=== PATIENT | male | born 1995 | race Two or more races ===

== ENCOUNTER 2016-11-26 14:25 | Emergency (ER) | payer MEDICAID ==
[2016-11-26 14:40] VITALS: TEMP 98.2
--- NOTE | 2016-11-26 15:04 | EDPHY ---
H & P Stated Complaint: abd bloating and nausea in mornings for 1 month HPI/ROS: CHIEF COMPLAINT: Stomach discomfort HISTORY OF PRESENT ILLNESS: This patient is a healthy 21 year old male arriving with his family complaining of stomach discomfort including bloating and tingling sensations onset today and nausea over the last two months. He has tried taking Pepcid and Pepto- Bismol to relieve his symptoms. He reports that he vomited once this afternoon around 12-1pm. He has had two normal bowel movements. He denies associated pain at this time. He states he has been having episodes of gagging upon waking for the last two months. He denies diarrhea, fever, or other associated symptoms. He reports he has stomach aches fairly often, and generally takes [place], Pepcid, or Pepto-Bismol to relieve symptoms. He reports is currently feeling more calm and not nauseous at this time. REVIEW OF SYSTEMS: A ten point review of systems was performed and is negative with the exception of the items mentioned in the HPI. - Personal History Current Tetanus/Diphtheria Vaccine: Yes - Medical/Surgical History PMH: Denies. Hx Asthma: No Hx Chronic Respiratory Disease: No Hx Diabetes: No Hx Cardiac Disease: No Hx Renal Disease: No Hx Cirrhosis: No Hx Alcoholism: No Hx HIV/AIDS: No Hx Splenectomy or Spleen Trauma: No Other PMH: Denies - Social History Smoking Status: Never smoked Additional Social History: Occasional marijuana use. Occasional alcohol use. 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 - Physical Exam Exam: General Appearance: Alert. Vital signs reviewed. Eyes: Pupils equal and round, no conjunctival injection, no discharge. Anicteric. ENT, Mouth: Mucous membranes are moist, no oropharyngeal erythema or edema. Neck: No lymphadenopathy, supple. Respiratory: Lungs are clear to auscultation; no wheezes, rales, or rhonchi. Cardiovascular: Regular rate and rhythm; no murmur, rub, or gallop. Gastrointestinal: Abdomen is soft and nontender, no masses or organomegaly, bowel sounds normal. Skin: Warm and dry, no rashes on exposed skin, normal color. Back: Nontender to palpation over the thoracolumbar spine. No CVAT. Extremities: No lower extremity edema, no calf tenderness or swelling. Neurological: Alert and oriented. Moving all four extremities easily and equally. Psychiatric: Normal affect. Constitutional: Initial Vital Signs Temperature (C) 36.8 C 11/26/16 14:38 Heart Rate 62 11/26/16 14:38 Respiratory Rate 18 11/26/16 14:38 Blood Pressure 133/82 H 11/26/16 14:38 O2 Sat (%) 98 11/26/16 14:38 O2 Delivery Mode Room Air Allergies/Adverse Reactions: No Known Allergies Allergy (Verified 11/26/16 14:38) Home Medications: Medication Instructions Recorded NK [No Known Home Meds] 11/26/16 Medical Decision Making ED Course/Re-evaluation: This patient is a healthy 21 year old male presenting with a two month history of morning nausea and gagging as well as stomach bloating and discomfort onset today. Physical exam is unremarkable. Plan to order labs including CBC, CHEM, lipase, and liver panel. I suspect his symptoms are likely due to acid reflux, but would like to rule out pancreatic or liver pathology. There is no jaundice. Labs unremarkable exccept for elevated bilirubin. No jaundice. LFTs otherwise nl. Doubt hepatitis, no other indication of liver disease, doubt obstruction of the biliary tree that would need urgent surgery, malignancy unlikely in this young male. He is not ill, this is not sepsis. Reassessed patient. Relayed results of lab work. Plan to discharge home in good condition with a referral to primary care. I have recommended he continue taking Pepcid daily to treat symptoms. Return precautions discussed. The patient and his family are comfortable with this plan. Differential Diagnosis: Abdominal pain including but not limited to appendicitis, cholecystitis, Pancreatitis, gastritis and urinary tract infection. - Data Points Laboratory Results: Laboratory Results 11/26/16 15:53 11/26/16 15:53 Departure - Departure Disposition: Home, Routine, Self-Care Clinical Impression: Midepigastric pain, Abdominal bloating Condition: Good Instructions: Gastroesophageal Reflux Disease (ED) Additional Instructions: 1. Continue to take Pepcid as directed on the packaging to relieve your symptoms. 2. Follow up with a primary care provider to determine a good regimen of symptom management for you. We have referred you to our outpatient physician organizational development director and to the [facility]. 3. Return to the ED for worsening vomiting, diarrhea, fever, chills, or other worsening of condition. Referrals: Elaine Gamez MD [[facility] Primary Care Provider] - As per Instructions [facility] [Clinic] - As per Instructions Report Scribed for: Kristal Stapleton Report Scribed by: Natty Obrien Date of Report: 11/26/16 Time of Report: 15:41 Physician Review and Approval Statement: 11/26/16 15:04 Portions of this note were transcribed by the medical accounting clerk. I, Dr. Kristal Stapleton, personally performed the history, physical exam, and medical decision- making; and confirmed the accuracy of the information in the transcribed note.
[2016-11-26 15:59] LABS: % IMMATURE GRANULYOCYTES 0.3 % (0.0-1.1); ABSOLUTE IMMATURE GRANULOCYTES 0.03 10^3/uL (0.00-0.10); ADD DIFF? NO; ADD MORPH? NO; ADD SCAN? NO; ATYPICAL LYMPHOCYTE FLAG 0 (0-99); FRAGMENT RBC FLAG 0 (0-99); HEMATOCRIT 47.3 % (40.0-51.0); HEMOGLOBIN 16.3 g/dL (13.7-17.5); LEFT SHIFT FLG 0 (0-99); LIPEMIA HEMOLYSIS FLAG 90 (0-99); MEAN CELL HEMOGLOBIN CONCENTR. 34.5 g/dL (32.4-36.7); MEAN CELL VOLUME 92.7 fL (81.5-99.8); MEAN PLATELET VOLUME 9.2 fL (8.7-11.7); PLATELET CLUMPS FLAG 0 (0-99); PLATELET COUNT 263 10^3/uL (150-400); RED CELL DISTRIBUTION WIDTH 11.4 % (11.5-15.2)
[2016-11-26 16:17] LABS: ALANINE AMINOTRANSFERASE 28 IU/L (21-72); ALBUMIN 4.9 g/dL (3.5-5.0); ALKALINE PHOSPHATASE 69 IU/L (38-126); ANION GAP 13 mEq/L (8-16); ASPARTATE AMINOTRANSFERASE 23 IU/L (17-59); BILIRUBIN,TOTAL 2.5 mg/dL (0.1-1.4); BILIRUBIN-CONJUGATED 0.6 mg/dL (0.0-0.5); BILIRUBIN-UNCONJUGATED 1.9 mg/dL (0.0-1.1); CALCIUM 10.2 mg/dL (8.5-10.4); CARBON DIOXIDE 23 mEq/l (22-31); CHLORIDE 108 mEq/L (97-110); CREATININE 0.9 mg/dL (0.7-1.3); GLOMERULAR FILTRATION RATE > 60; GLUCOSE 110 mg/dL (70-100); POTASSIUM 4.2 mEq/L (3.5-5.2); SODIUM 144 mEq/L (134-144)
[2016-11-26 16:45] VITALS: BP 127/93; PULSE 72; RESP 16; O2SAT 95
== END 2016-11-26 16:44 | disposition home or self-care (01) ==
DX: R14.0 Abdominal distension (gaseous) (principal); R10.13 Epigastric pain

== ENCOUNTER 2017-05-26 11:16 | Emergency (ER) | payer MEDICAID ==
--- NOTE | 2017-05-26 11:40 | EDPHY ---
H & P Time Seen by Provider: 05/26/17 11:24 HPI/ROS: CHIEF COMPLAINT: Fever, sore throat HISTORY OF PRESENT ILLNESS: 21-year-old male presents to the emergency department with fever and sore throat over last 2 days. It over last 2 weeks however he has had mild rhinorrhea and cough. He states he has been taking DayQuil and he is feeling much better. He states yesterday however he developed fever, chills and sore throat. He states that he was around his little brother who was recently started antibiotics for strep. He is concerned that he could have strep throat. He denies dysphagia. Denies abdominal pain or vomiting. No neck pain or stiffness. No back pain. REVIEW OF SYSTEMS: Constitutional: Fever as above. No chills. Eyes: No double or blurry vision. ENT: sore throat. Respiratory: No cough, no shortness of breath. Cardiac: No chest pain. Gastrointestinal: No abdominal pain, vomiting or diarrhea. Genitourinary: No dysuria. Musculoskeletal: No neck or back pain. Skin: No rashes. Neurological: No headache. Past Medical/Surgical History: Negative Social History: Single Smoking Status: Never smoked Physical Exam: General Appearance: Alert, no distress. Eyes: Pupils equal and round. Extraocular motions are all intact. ENT: Mouth: Mucous membranes moist. Posterior pharyngeal injection noted without exudate both tonsils. No uvular swelling or shift. No muffled voice or trismus. Anterior cervical lymphadenopathy palpated. Respiratory: No wheezing, rhonchi, or rales, lungs are clear to auscultation. Cardiovascular: Regular rate and rhythm. Gastrointestinal: Abdomen is soft and nontender, no masses, no rebound or guarding, bowel sounds normal. Neurological: Alert and oriented x 3, cranial nerves II through XII grossly intact Skin: Warm and dry, no rashes. Musculoskeletal: Nontender to palpate along the cervical, thoracic or lumbar spine. Neck is supple. No nuchal rigidity. Extremities: Full range of motion and no peripheral edema. Psychiatric: Patient is oriented X 3, there is no agitation. Constitutional: Initial Vital Signs Temperature (C) 37.3 C 05/26/17 11:19 Heart Rate 88 05/26/17 11:19 Respiratory Rate 20 05/26/17 11:19 Blood Pressure 126/79 H 05/26/17 11:19 O2 Sat (%) 96 05/26/17 11:19 O2 Delivery Mode Room Air Allergies/Adverse Reactions: No Known Allergies Allergy (Verified 05/26/17 11:19) Home Medications: Medication Instructions Recorded Penicillin V Potassium 500 mg PO TID #30 tablet 05/26/17 Medical Decision Making ED Course/Re-evaluation: 21-year-old male presents with fever and sore throat. The patient had contact with his younger brother who tested positive for strep. Patient has exudate pharyngitis with low-grade temperature. He will be treated for strep. I did give him the options of testing for strep, however the patient agreed with treating with antibiotics. Patient should return if he develops vomiting, difficulty swallowing, or if he feels worse in any way. She was comfortable with this plan. Differential Diagnosis: Including but not limited to strep pharyngitis, mononucleosis, viral syndrome, peritonsillar abscess, retropharyngeal abscess. Departure - Departure Disposition: Home, Routine, Self-Care Clinical Impression: Acute streptococcal pharyngitis Condition: Good Instructions: Strep Throat (ED) Additional Instructions: Penicillin 3 times daily for 10 days. You should discard toothbrush after you have been on antibiotics for 48 hours and when you have completed the antibiotics in 10 days. Adult Pain & Fever Control: We recommend Acetaminophen (Tylenol) and Ibuprofen (Motrin,Advil) for pain and fever control. When fever is high or pain severe, both drugs can be used at the same time, but at different intervals. Please note the time differences. Your dose is: Acetaminophen [1000]mg every 4 to 6 hours Ibuprofen [600]mg every [8] hours with food Note: do not take Acetaminophen with Hydrocodone (Vicodin, Lortab) or Oycodone (Percocet). These medications also contain Acetaminophen. No more than 3000mg of Acetaminophen should be taken in 24 hours (for an adult). Referrals: Cher Hays MD [Medical Doctor] - 2-3 days, if not improved (Primary care provider construction helper) Prescriptions: Penicillin V Potassium 500 mg PO TID #30 tablet
[2017-05-26 11:51] VITALS: BP 126/79; PULSE 88; RESP 20; TEMP 99.1; O2SAT 96
== END 2017-05-26 11:44 | disposition home or self-care (01) ==
DX: J02.0 Streptococcal pharyngitis (principal)

== ENCOUNTER 2017-10-28 20:39 | Emergency (ER) | payer MEDICAID ==
--- NOTE | 2017-10-28 21:21 | EDPHY ---
H & P Stated Complaint: abd pain, nausea - Medical/Surgical History Hx Asthma: No Hx Chronic Respiratory Disease: No Hx Diabetes: No Hx Cardiac Disease: No Hx Renal Disease: No Hx Cirrhosis: No Hx Alcoholism: No Hx HIV/AIDS: No Hx Splenectomy or Spleen Trauma: No Other PMH: strep - Social History Smoking Status: Never smoked Time Seen by Provider: 10/28/17 21:04 HPI/ROS: CHIEF COMPLAINT: Epigastric discomfort x1 week HISTORY OF PRESENT ILLNESS: 22-year-old male history of H pylori gastritis in the past, not currently on PPI or other medication, complaining of 1 week of intermittent nausea and epigastric pain. Not associated with food intake. No back or flank pain. No vomiting. No melena or hematochezia. Bowel movements normal. No urinary abnormality. No testicular pain. No fever or chills. No trauma. No chest pain. No dyspnea. PRIMARY CARE PROVIDER: REVIEW OF SYSTEMS: A ten point review of systems was performed and is negative with the exception of the items mentioned in the HPI PAST MEDICAL & SURGICAL HISTORY: Positive for H pylori in the past SOCIAL HISTORY: Nonsmoker. PHYSICAL EXAM (Prior to examination, patient consented to physical exam, hands were washed and my usual and customary physical exam procedures followed) 1) GENERAL: Well-developed, well-nourished, alert and oriented. Appears to be in no acute distress. 2) HEAD: Normocephalic, atraumatic 3) HEENT: Pupils equal, round, reactive to light bilaterally. Sclera anicteric. Nasopharynx, oropharynx, clear, no lesions. Moist mucous membranes 4) NECK: Full range of motion, no meningeal signs. 5) LUNGS: Clear auscultation bilaterally, no wheezes, no rhonchi, no retractions. 6) HEART: Regular rate and rhythm, no murmur, no heave, no gallop. 7) ABDOMEN: No guarding, no rebound, minimal tenderness to palpation midline epigastrium, negative McBurney's, negative Street's, negative Rovsing's, negative peritoneal sign, 8) MUSCULOSKELETAL: Moving all extremities, no focal areas of tenderness, no obvious trauma. No peripheral edema or discoloration. 9) BACK: No CVA tenderness, no midline vertebral tenderness, no fluctuance, no step-off, no obvious trauma, no visual or palpable abnormality. 10) SKIN: No rash, no petechiae. 11) Psychiatric: Patient is oriented X 3, there is no agitation. DIFFERENTIAL DIAGNOSIS: In no particular order, including but not limited to biliary colic, cholecystitis, peptic ulcer disease, pancreatitis, and gastroenteritis. This is a partial list of diagnoses considered. These considerations are based on history, physical exam, past history and reassessment. (Ren Galicia) Constitutional: Initial Vital Signs Temperature (C) 36.8 C 10/28/17 20:42 Heart Rate 92 10/28/17 20:42 Respiratory Rate 20 10/28/17 20:42 Blood Pressure 147/78 H 10/28/17 20:42 O2 Sat (%) 98 10/28/17 20:42 O2 Delivery Mode Room Air Allergies/Adverse Reactions: No Known Allergies Allergy (Verified 10/28/17 20:42) Home Medications: Medication Instructions Recorded Pantoprazole Sodium [Protonix 40mg 40 mg PO DAILY #30 tab 10/28/17 (RX)] Medical Decision Making ED Course/Re-evaluation: The patient was evaluated and managed by the physician's animal care assistant. My cosignature indicates that I reviewed the chart and I agree with the findings and plan of care as documented. I am the secondary supervising physician. ( Tess Colon) Patient was re-evaluated with serial examinations most recently at 10:04 p.m.. He has been given a GI cocktail and notes that he is now asymptomatic. I reviewed his laboratory studies. Doubt acute cholecystitis. Doubt acute appendicitis. Doubt acute pancreatitis. I do not think that imaging studies are currently indicated at this time. I discussed his elevated unconjugated bilirubin with him which may have multiple etiologies. At this time I do not think that emergent intervention or diagnostic studies are indicated regarding specifically regarding this. However, he will necessitate further follow-up. I have given him both primary care and GI follow-up information. I am initiating proton pump inhibitor therapy and discussed usual and customary abdominal precautions and instructions and dietary recommendations. He feels comfortable being discharged. All questions and concerns addressed by myself. Care of patient under supervision of secondary supervising physician Dr Colon . (Ren Galicia) - Data Points Laboratory Results: Laboratory Results 10/28/17 21:20 10/28/17 21:20 10/28/17 10/28/17 21:20 21:20 WBC 9.69 10^3/uL H 10^3/uL (3.80-9.50) RBC 5.32 10^6/uL 10^6/uL (4.40-6.38) Hgb 16.7 g/dL g/dL (13.7-17.5) Hct 47.8 % % (40.0-51.0) MCV 89.8 fL fL (81.5-99.8) MCH 31.4 pg pg (27.9-34.1) MCHC 34.9 g/dL g/dL (32.4-36.7) RDW 11.8 % % (11.5-15.2) Plt Count 273 10^3/uL 10^3/uL (150-400) MPV 8.9 fL fL (8.7-11.7) Neut % (Auto) 81.3 % H % (39.3-74.2) Lymph % (Auto) 13.4 % L % (15.0-45.0) Taney % (Auto) 4.5 % % (4.5-13.0) Eos % (Auto) 0.1 % L % (0.6-7.6) Baso % (Auto) 0.3 % % (0.3-1.7) Nucleat RBC Rel Count 0.0 % % (0.0-0.2) Absolute Neuts (auto) 7.87 10^3/uL H 10^3/uL (1.70-6.50) Absolute Lymphs (auto) 1.30 10^3/uL 10^3/uL (1.00-3.00) Absolute Monos (auto) 0.44 10^3/uL 10^3/uL (0.30-0.80) Absolute Eos (auto) 0.01 10^3/uL L 10^3/uL (0.03-0.40) Absolute Basos (auto) 0.03 10^3/uL 10^3/uL (0.02-0.10) Absolute Nucleated RBC 0.00 10^3/uL 10^3/uL (0-0.01) Immature Gran % 0.4 % % (0.0-1.1) Immature Gran # 0.04 10^3/uL 10^3/uL (0.00-0.10) Sodium 144 mEq/L mEq/L (135-145) Potassium 3.8 mEq/L mEq/L (3.5-5.2) Chloride 103 mEq/L mEq/L (97-110) Carbon Dioxide 23 mEq/l mEq/l (22-31) Anion Gap 18 mEq/L H mEq/L (8-16) BUN 14 mg/dL mg/dL (7-23) Creatinine 1.0 mg/dL mg/dL (0.7-1.3) Estimated GFR > 60 Glucose 112 mg/dL H mg/dL (70-100) Calcium 10.1 mg/dL mg/dL (8.5-10.4) Total Bilirubin 2.3 mg/dL H mg/dL (0.1-1.4) Conjugated Bilirubin 0.5 mg/dL mg/dL (0.0-0.5) Unconjugated Bilirubin 1.8 mg/dL H mg/dL (0.0-1.1) AST 25 IU/L IU/L (17-59) ALT 35 IU/L IU/L (21-72) Alkaline Phosphatase 80 IU/L IU/L (38-126) Total Protein 8.1 g/dL g/dL (6.3-8.2) Albumin 4.7 g/dL g/dL (3.5-5.0) Lipase 34 IU/L IU/L (23-300) Medications Given: Discontinued Medications Al Hydroxide/Mg Hydroxide (Maalox Susp) 30 ml PO ONCE ONE Stop: 10/28/17 21:23 Last Admin: 10/28/17 21:31 Dose: 30 ml Hyoscyamine Sulfate (Levsin, Hyomax-Sl) 0.25 mg PO ONCE ONE Stop: 10/28/17 21:23 Last Admin: 10/28/17 21:31 Dose: 0.25 mg Sodium Chloride (Ns) 1,000 mls @ 0 mls/hr IV ONCE ONE PRN Reason: Wide Open Stop: 10/28/17 21:23 Last Admin: 10/28/17 21:31 Dose: 1,000 mls Lidocaine (Lidocaine 2% Viscous) 15 ml PO ONCE ONE Stop: 10/28/17 21:23 Last Admin: 10/28/17 21:31 Dose: 15 ml Departure - Departure Disposition: Home, Routine, Self-Care Clinical Impression: Epigastric abdominal pain Condition: Good Instructions: Acute Abdominal Pain (ED) Additional Instructions: Seek immediate medical attention if you develop new or worsening symptoms, if you develop fevers, chills, inability to tolerate oral intake or any other symptoms that concerns you. Eat bland food, decrease your caffeine, soda and alcohol ingestion. Referrals: Edd Zeng MD [Medical Doctor] - 1-2 days without fail [facility],. [Clinic] - 1-2 days without fail Prescriptions: Pantoprazole Sodium [Protonix 40mg (RX)] 40 mg PO DAILY #30 tab
[2017-10-28] MEDS ORDERED: LIDOCAINE 2% VISCOUS 15 ML UDCUP PO ONE (21:22)
[2017-10-28] MEDS ORDERED: NS 1,000 ML IV ONE (21:22)
[2017-10-28] MEDS ORDERED: HYOSCYAMINE SULFATE 0.125 MG TAB PO ONE (21:22)
[2017-10-28] MEDS ORDERED: MAG HYDROX/AL HYDROX/SIMETH 30 ML UDCUP PO ONE (21:22)
[2017-10-28 21:30] LABS: PLATELET COUNT 273 10^3/uL (150-400)
[2017-10-28 22:13] VITALS: BP 116/79
== END 2017-10-28 22:27 | disposition home or self-care (01) ==
DX: R10.13 Epigastric pain (principal)

== ENCOUNTER 2017-11-09 19:17 | Emergency (ER) | payer SELFPAY ==
--- NOTE | 2017-11-09 19:52 | EDPHY ---
HPI/HX/ROS/PE/MDM Narrative: CHIEF COMPLAINT: Abdominal pain HISTORY OF PRESENT ILLNESS: The patient is a 22 y/o male with a history of H. pylori complaining of abdominal pain after taking antibiotics (Metronidazole and Tetracycline) for H. pylori. He was seen in an emergency department several weeks ago for abdominal pain and was advised to take antacids and follow up with his PCP. When he saw his PCP at [facility], on 11/01/17, he was diagnosed with H. pylori via a stool specimen. Since taking the antibiotics he has had a decreased appetite, diarrhea , and has been vomiting (primarily when he takes Metronidazole). These symptoms feel different than prior H. pylori infections. Admits to marijuana use. Denies seeing a mold closer helper. No fever, chills, chest pain, shortness of breath, palpitations, urinary complaints, headache, lightheadedness. REVIEW OF SYSTEMS: Aside from elements discussed in the HPI, a comprehensive 10-point review of systems was reviewed and is negative. PAST MEDICAL HISTORY: H. pylori, stomach ulcers SOCIAL HISTORY: Family at bedside, lives in [facility] VITAL SIGNS: Reviewed by me GENERAL: Well-developed, well-nourished, resting comfortably in no respiratory distress. HEENT: Atraumatic. Eyes: No icterus, no injection. Mouth: moist mucous membranes. No erythema or lesions. Neck: supple with no adenopathy. LUNGS: Clear to auscultation bilaterally, no wheezes, rhonchi or rales. CARDIAC: Regular rate and rhythm, no rubs, murmurs or gallops. ABDOMEN: Mild epigastric tenderness to palpation. Soft, nondistended, bowel sounds normal. BACK: No CVA tenderness. EXTREMITIES: No trauma. No edema. Range of motion is normal throughout. NEURO: Alert and oriented, grossly nonfocal. SKIN: Warm and dry, no rash. PSYCHIATRIC: Normal mentation, no agitation. Portions of this note were transcribed by a medical surgical tech. I personally performed a history, physical exam, medical decision making, and confirmed accuracy of information the transcribed note. ED Course: The patient is a 22 y/o male with a history of H. pylori complaining of abdominal pain after taking antibiotics (Metronidazole and Tetracycline) for H. pylori. On exam he has mild epigastric tenderness to palpation. GI cocktail and 1gm PO Carafate administered. Reassessed patient, he is feeling better after GI cocktail. I have advised him to take Clarithromycin and Amoxicillin instead of Metronidazole and Tetracycline. I have also prescribed him Phenergan for nausea. I have advised him to take Pantoprazole, Carafate, and Maalox or Mylanta. Return precautions provided; patient is comfortable with this plan. MDM: After obtaining the patient's history and performing an examination, differential diagnosis considered included but was not limited to gastritis, reflux, perforated ulcer, indigestion and abdominal upset from a antibiotics, H pylori, pancreatitis, hepatitis. - Data Points Medications Given: Discontinued Medications Al Hydroxide/Mg Hydroxide (Maalox Susp) 30 ml PO ONCE ONE Stop: 11/09/17 20:15 Last Admin: 11/09/17 20:21 Dose: 30 ml Famotidine (Pepcid) 20 mg PO EDNOW ONE Stop: 11/09/17 20:15 Last Admin: 11/09/17 20:21 Dose: 20 mg Hyoscyamine Sulfate (Levsin, Hyomax-Sl) 0.25 mg PO ONCE ONE Stop: 11/09/17 20:15 Last Admin: 11/09/17 20:21 Dose: 0.25 mg Lidocaine (Lidocaine 2% Viscous) 15 ml PO ONCE ONE Stop: 11/09/17 20:15 Last Admin: 11/09/17 20:21 Dose: 15 ml General Time Seen by Provider: 11/09/17 19:47 Initial Vital Signs: Initial Vital Signs Temperature (C) 37.0 C 11/09/17 19:32 Heart Rate 82 11/09/17 19:32 Respiratory Rate 16 11/09/17 19:32 Blood Pressure 125/78 H 11/09/17 19:32 O2 Sat (%) 98 11/09/17 19:32 O2 Delivery Mode Room Air Allergies/Adverse Reactions: No Known Allergies Allergy (Verified 11/09/17 19:34) Home Medications: Medication Instructions Recorded Pantoprazole Sodium [Protonix 40mg 40 mg PO DAILY #30 tab 10/28/17 (RX)] Amoxicillin Trihydrate [Amoxil] 1,000 mg PO Q12H 14 Days cap 11/09/17 Clarithromycin [Biaxin (*)] 500 mg PO BID 14 Days tab 11/09/17 Metronidazole 11/09/17 Pepto-Bismol 11/09/17 Promethazine HCl [Phenergan 25mg 2.5 - 25 mg PO Q8 PRN #20 tab 11/09/17 (*)] Sucralfate [Carafate 1 GM (*)] 1 gm PO ACHS #40 tab 11/09/17 Tetracycline HCl 11/09/17 Zofran Odt 11/09/17 Departure - Departure Disposition: Home, Routine, Self-Care Clinical Impression: Abdominal pain Condition: Good Instructions: Sucralfate (By mouth), Promethazine (By mouth), Amoxicillin/ Clavulanate Potassium (By mouth), Clarithromycin (By mouth), Helicobacter Pylori (ED), Acute Abdominal Pain (ED) Additional Instructions: Stop taking Metronidazole and Tetracycline. Begin taking Clarithromycin and Amoxicillin. Stop taking Zofran. You may use Phenergan for nausea. Begin taking Pepcid every night. Take Pantoprazole (Protonix) in the mornings. Take Carafate 30 minutes prior to each meal. Take Maalox or Mylanta to control pain as needed. Follow-up with your primary doctor within 72 hours. Follow-up with a mold closer helper, you have been referred to Dr. Magana. Return to the Emergency Department for fever, chest pain, shortness of breath, increasing pain or other worsening of condition. Referrals: [facility] [Clinic] - As per Instructions Walter Magana MD [Medical Doctor] - As per Instructions Prescriptions: Amoxicillin Trihydrate [Amoxil] 1,000 mg PO Q12H 14 Days cap Clarithromycin [Biaxin (*)] 500 mg PO BID 14 Days tab Promethazine HCl [Phenergan 25mg (*)] 2.5 - 25 mg PO Q8 PRN #20 tab PRN Reason: nausea Sucralfate [Carafate 1 GM (*)] 1 gm PO ACHS #40 tab Report Scribed for: Viridiana Mujica Report Scribed by: Sherry Eason Date of Report: 11/09/17 Time of Report: 19:51
[2017-11-09] MEDS ORDERED: HYOSCYAMINE SULFATE 0.125 MG TAB PO ONE (20:14)
[2017-11-09] MEDS ORDERED: MAG HYDROX/AL HYDROX/SIMETH 30 ML UDCUP PO ONE (20:14)
[2017-11-09] MEDS ORDERED: LIDOCAINE 2% VISCOUS 15 ML UDCUP PO ONE (20:14)
[2017-11-09] MEDS ORDERED: FAMOTIDINE 20 MG TAB PO ONE (20:14)
[2017-11-09] MEDS ORDERED: SUCRALFATE 1 GM TAB PO SCH (21:00)
[2017-11-09 21:10] VITALS: BP 106/70
== END 2017-11-09 21:10 | disposition home or self-care (01) ==
DX: R10.9 Unspecified abdominal pain (principal)

== ENCOUNTER 2018-07-09 16:26 | Emergency (ER) | payer SELFPAY ==
[2018-07-09 16:44] VITALS: BP 101/65
--- NOTE | 2018-07-09 17:22 | EDPHY ---
General Time Seen by Provider: 07/09/18 17:06 Narrative: CLINICAL IMPRESSION: Bacterial tonsillitis ASSESSMENT/PLAN: 22-year-old male presents to the emergency department with 1 day of sore throat , fever, myalgias. On exam, patient has symmetric bilateral exudative tonsillitis despite a negative rapid strep test. No clinical sign of peritonsillar abscess, retropharyngeal abscess, epiglottitis, uvulitis, Mic' s angina, neck abscess or neck cellulitis. He was treated with antibiotics based on the clinical appearance of his tonsils. Strep culture pending. PCP follow-up recommended, warning signs return to ED sooner alignment discharge. DIFFERENTIAL DX: Differential includes but not limited to viral tonsillitis, strep tonsillitis, exudative tonsillitis, peritonsillar abscess, retropharyngeal abscess, uvulitis , stomatitis, viral after this ulcers, viral syndrome. ED PROCEDURES: See lab and/or imaging results below ED COURSE: CHIEF COMPLAINT: Sore throat, fever, body aches HPI: 22-year-old otherwise healthy male presents to the emergency department with 1 day of sore throat, subjective fevers, myalgias, and painful swallowing. He does report a history of strep throat in the past although not chronic. He is tolerating secretions well. He has been using [id number] medications for pain and fever. No associated abdominal complaints, nausea, vomiting, diarrhea. He did not get a flu shot this year. PAST MEDICAL HISTORY: None reported See triage summary and nurse notes for addition applicable history Pertinent Past Surgical History: None reported Family History: Noncontributory Social History: Otherwise healthy REVIEW OF SYSTEMS: A full 10 point review of systems was negative except for those mentioned in HPI. PHYSICAL EXAM: General Appearance: Alert, oriented, appropriate, cooperative, NAD, well hydrated, non-toxic appearing, VSS, no hypoxia. HEENT: TMs are clear bilaterally no perforation or FB, no injection, no evidence of serous or mucopurulent otitis. Bilateral 2+ symmetric erythematous tonsils with exudates present. No clinical signs of peritonsillar abscess or retropharyngeal abscess. Upper airway intact. Tolerating secretions well. Dentition without abnormality. Eyes: PERRLA, no acute vision change, nystagmus, swelling, discharge, pain or photosensitivity. Conjunctiva pink, no pallor or injection Neck: Supple, nontender, no lymphadenopathy, no midline pain, FROM, no meningismus. Respiratory: There are no retractions, lungs are clear to auscultation. Cardiac: Regular rate and rhythm, no murmurs or gallops. Gastrointestinal: Abdomen is soft, nontender, bowel sounds normal, no masses/ hernia, no rigidity, guarding or focal peritoneal findings. Skin: Warm, dry, no rashes, no nodules on palpation. MEDICAL DECISION MAKING: Patient was seen independently. Secondary supervising physician at time of evaluation was: Dr. Rhodes. Diagnosis: Bacterial tonsillitis. New, requires workup Summary: See Assessment and Plan for summary of ED visit Clinical lab tests: ordered / reviewed. Patient Progress: Improved. - History Smoking Status: Never smoked - Objective Vital Signs: Initial Vital Signs Temperature (C) 37.2 C 07/09/18 16:40 Heart Rate 74 07/09/18 16:40 Respiratory Rate 17 07/09/18 16:40 Blood Pressure 101/65 07/09/18 16:40 O2 Sat (%) 96 07/09/18 16:40 O2 Delivery Mode Room Air Allergies/Adverse Reactions: No Known Allergies Allergy (Verified 07/09/18 16:39) Home Medications: Medication Instructions Recorded Amoxicillin Trihydrate 500 mg PO Q8 #21 cap 07/09/18 [Amoxicillin 500mg capsule] Departure - Departure Disposition: Home, Routine, Self-Care Clinical Impression: Acute tonsillitis Condition: Good Instructions: Tonsillitis (ED) Additional Instructions: DISCHARGE INSTRUCTIONS FROM YOUR DOCTOR Thank you for visiting our emergency department today. Please keep in mind that discharge from the emergency department does not mean that there is nothing wrong - it simply means that we have not identified an emergency condition that requires further evaluation or treatment in the hospital. You should always plan to follow up with primary care for re-evaluation of your condition in the next 2-3 days. If you have been referred to a specialist, please call as soon as possible (today or tomorrow) to schedule your follow up appointment at the appropriate time. YOUR RAPID STREP TEST WAS NEGATIVE HOWEVER GIVEN THE APPEARANCE OF YOUR TONSILS I SUSPECT A BACTERIAL INFECTION. ANTIBIOTICS WERE PRESCRIBED. PLEASE TAKE THESE DIRECTED AND COMPLETE THE ENTIRE COURSE. PLEASE FOLLOW UP WITH A PRIMARY CARE PROVIDER. RETURN TO THE EMERGENCY DEPARTMENT IMMEDIATELY FOR INCREASED PAIN, SWELLING, DIFFICULTY HANDLING YOUR OWN SALIVA, TROUBLE STAYING HYDRATED, UNILATERAL SWELLING OF 1 TONSIL, PERSISTENT FEVERS, OR ANY OTHER CONCERNS. People present with illnesses and injuries in different ways, and it is always possible that we have missed something. You may always return for re-evaluation if symptoms worsen or if they are not improving or if you develop new/different symptoms. Again, thank you for choosing our emergency department. We hope that you feel better. Referrals: NONE *PRIMARY CARE P,. [Primary Care Provider] - As per Instructions Meredith Fuchs MD [Medical Doctor] - As per Instructions Prescriptions: Amoxicillin Trihydrate [Amoxicillin 500mg capsule] 500 mg PO Q8 #21 cap
== END 2018-07-09 17:30 | disposition home or self-care (01) ==
DX: J03.90 Acute tonsillitis, unspecified (principal)